=== PATIENT | male | born 1965 | race Caucasian/White ===

== ENCOUNTER 2021-10-19 09:44 | Emergency (ER) | payer OTHER ==
[2021-10-19] MEDS ORDERED: cloNIDine 0.1 MG Tab PO ONE (10:37)
[2021-10-19 10:57] LABS: CHLORIDE,CL 94 mmol/L (98-107); SODIUM,NA 134 mmol/L (136-145)
[2021-10-19 10:58] LABS: ANION GAP 17.2 mmol/L (5-15)
== END 2021-10-19 11:55 | disposition home or self-care (01) ==
LOC: VM.ED 09:44
DX: I16.0 Hypertensive urgency (principal); I10 Essential (primary) hypertension; Z72.0 Tobacco use
CPT/HCPCS: 36415; 71046; 80053; 81001; 84484; 85025; 93005; 93010; 99284; 99284-25; A9270-GY